=== PATIENT | female | born 1995 | race Caucasian/White ===

== ENCOUNTER 2024-08-25 08:00 | Outpatient (RCR) | payer OTHER, SELFPAY | END 2024-10-26 09:27 | disposition home or self-care (01) | PROVIDERS: Visit Provider Orthopaedic Surgery | DX: S76.119A Strain of unspecified quadriceps muscle, fascia and tendon, initial encounter (principal); Z51.89 Encounter for other specified aftercare | CPT/HCPCS: 97032; 97110; 97116; 97140; 97162; 97530 ==